=== PATIENT | female | born 1975 | race Caucasian/White ===

== ENCOUNTER 2017-07-17 16:44 | Emergency (ER) | payer MEDICARE, OTHER ==
[2017-07-17 16:47] VITALS: BP 167/91; PULSE 69; RESP 16; TEMP 98.4; O2SAT 100
[2017-07-17] MEDS ORDERED: [UNRECOGNIZED DRUG - OTHER] (17:28)
[2017-07-17] MEDS ORDERED: ACETAMINOPHEN/HYDROcodone 325 MG/5 MG TAB PO ONE (18:00)
[2017-07-17] MEDS ORDERED: ORPHENADRINE INJ 60 MG/2 ML AMP IM ONE (18:00)
[2017-07-17] MEDS ORDERED: KETOROLAC TROMETHAMINE 60 MG/2 ML (IM) VIAL IM ONE (18:00)
--- NOTE | 2017-07-17 18:08 | PD ---
HPI Chief Complaint: Musculoskeletal Complaint Time Seen by Provider: 17:25 Travel History International Travel<30 days: No Contact w/Intl Traveler<30days: No Traveled to known affect area: No History of Present Illness HPI 41-year-old female with PMH of degenerative discs, chronic back pain presents to the ED for evaluation of 04/17 shooting back pain, onset the morning when she woke up. She can identify no acute injury or recent overuse. She states that the pain radiates up her spine and down her legs. She endorses antalgic gait. She denies headache, fevers, numbness, tingling, weakness, limitations to range of motion of the lower extremities, saddle anesthesia or bowel/bladder incontinence. She denies dysuria, hematuria, urinary urgency. She states this is similar to her previous back pain problems. She states that she was previously seen by a neurologist but has not been evaluated since July. She is seeking treatment of her pain. PFSH Past Medical History ?: Not LMP: mirena Social History Alcohol Use: No Tobacco Use: No Substance Use: No Allergies-Medications (Allergen,Severity, Reaction): Coded Allergies: No Known Allergies (Unverified , 07/17/17) Reported Meds & Prescriptions Reported Meds & Active Scripts Active Reported [dexalin] 60 Mg BID Review of Systems Except as stated in HPI: all other systems reviewed are Neg Physical Exam Narrative GENERAL: Morbidly obese white female, lying on her side on the stretcher with her legs tucked underneath her no acute distress. SKIN: Focused skin assessment warm/dry. HEAD: Normocephalic. EYES: No scleral icterus. No injection or drainage. NECK: Supple, trachea midline. No JVD or lymphadenopathy. CARDIOVASCULAR: Regular rate and rhythm without murmurs, gallops, or rubs. RESPIRATORY: Breath sounds equal bilaterally. No accessory muscle use. GASTROINTESTINAL: Abdomen soft, non-tender, nondistended. MUSCULOSKELETAL: No cyanosis, or edema. 5/5 strength with dorsiflexion, plantarflexion knee flexion bilaterally. Patient is noted to walk with an antalgic gait. BACK: No obvious deformity. No CVA tenderness. Positive midline tenderness of the entire length of the spine and the paraspinal musculature. Data Data Last Documented VS Vital Signs Date Time Temp Pulse Resp B/P (MAP) Pulse Ox O2 Delivery O2 Flow Rate FiO2 1/9/18 16:47 98.4 69 16 167/91 (116) 100 Orders Orders Ketorolac Inj (Toradol Inj) (07/17/17 18:00) Orphenadrine Inj (Norflex Inj) (07/17/17 18:00) Acetamin-Hydrocod 325-5 Mg ([place] 5-325 (07/17/17 18:00) MDM Medical Decision Making Medical Screen Exam Complete: Yes Emergency Medical Condition: Yes Differential Diagnosis Acute on chronic back pain versus musculoskeletal pain versus sciatica versus other Narrative Course 41-year-old female with PMH of degenerative discs, chronic back pain presents to the ED for evaluation of 04/17 shooting back pain, onset the morning when she woke up, radiates up her spine and down her legs. She endorses antalgic gait. She denies numbness, tingling, weakness, limitations to range of motion of the lower extremities, saddle anesthesia or bowel/bladder incontinence, dysuria, hematuria, urinary urgency. She states this is similar to her previous back pain problems. Vitals reviewed. Physical exam reveals an obese white female in no acute distress. There is 5/5 strength of the bilateral lower extremities. She is noted to walk with an antalgic gait. There is tenderness to palpation over the entire midline is worse the paraspinal musculature of the back. No CVA tenderness noted. This is acute exacerbation of chronic low back pain. Patient was administered IM Toradol, IM Norflex and 5 mg Lortab by mouth. She is prescribed a short course of anti-inflammatories and muscle relaxants. She is instructed to begin the anti-inflammatories tomorrow, muscle relaxants and 6 hours. She is instructed to return to normal, gentle activity as tolerated. We discussed red flag symptoms and reasons to return to the ED. She was referred to the [place] [facility] to establish primary care. She indicated understanding of instructions and is agreeable to the care plan. The patient is stable and discharged home. Diagnosis Primary Impression: Acute exacerbation of chronic low back pain Referrals: [facility] Patient Instructions: Acute Low Back Pain (ED), Chronic Back Pain (ED), General Instructions Additional Instructions: Rest, hydrate. A mixture of rest and activity is best for back pain. Return to normal, gentle activity as tolerated. Take medication as prescribed. Begin ibuprofen tomorrow. Begin Flexeril at 6 hours as needed for spasm. Do not drive while taking muscle relaxants. Warm compresses or heating pad applied to area pain may also help to improve your symptoms. Do not sleep on the heating pad. Follow-up with the [facility] as discussed. Return to the ED for worsening symptoms or any urgent or emergent medical condition. Med/Other Pt SpecificInfo: Prescription(s) given Scripts Ibuprofen (Ibuprofen) 800 Mg Tab 800 MG PO Q8H, #15 TAB 0 Refills Prov: Rehana Cote MD 07/17/17 Cyclobenzaprine (Flexeril) 10 Mg Tab 10 MG PO TID for Muscle Spasm, #15 TAB 0 Refills Prov: Rehana Cote MD 07/17/17 Disposition: 01 DISCHARGE HOME Condition: Stable Ofelia Gonzales Jul 17, 2017 18:08
[2017-07-17] MEDS ORDERED: IBUP1TAB7 PO (18:09)
[2017-07-17] MEDS ORDERED: CYCL10TA PO (18:09)
== END 2017-07-17 18:56 | disposition home or self-care (01) ==
LOC: NEPK 16:44
DX: M54.5 Low back pain (principal); G89.29 Other chronic pain; E66.01 Morbid (severe) obesity due to excess calories
CPT/HCPCS: 96372; 99284; J1885; J2360

== ENCOUNTER 2018-04-21 08:22 | Observation (INO) ==
[2018-04-21] MEDS ORDERED: Sod Chloride 0.9% Inj 1,000 ML IV.SIG ONE (08:58)
[2018-04-21] MEDS ORDERED: Morphine Inj 4 MG/ML Vial IV.PUSH ONE (08:58)
--- NOTE | 2018-04-21 09:09 | ED ---
HPI General Chief Complaint: Abdominal Pain Stated Complaint: flank pain Time Seen by Provider: 04/21/18 08:39 Source: patient Mode of arrival: ambulatory Limitations: no limitations History of Present Illness HPI narrative: Patient is a 42-year-old female, past medical history significant for migraines, ray nods syndrome, fibromyalgia, irritable bowel syndrome, who presents with complaint of right upper quadrant/right flank pain that began yesterday and has been constant since approximately 9 PM last night. She also reports nausea but states that she is chronically nauseated and this is no different than normal. No vomiting. No constipation or diarrhea. No changes in urination. MD complaint: Reports abdominal pain Onset (ago): day(s) Pain Consistency: constant Location: Reports RUQ and R flank Severity: moderate Quality: Reports aching and fullness Radiation: Reports none Migration to: Reports no migration Relieving factors: nothing Exacerbating factors: nothing Associated symptoms: Reports nausea Related Data Home Medications Medication Instructions Recorded Confirmed dexlansoprazole [Dexilant] 60 mg PO DAILY 04/21/18 04/21/18 dihydroergotamine 1 mg SUBCUT Q1H PRN 04/21/18 04/21/18 hyoscyamine sulfate 0.375 mg PO DAILY 04/21/18 04/21/18 metoclopramide HCl [Reglan] 5 mg PO TID PRN 04/21/18 04/21/18 verapamil 120 mg PO BID PRN 04/21/18 04/21/18 Allergies Allergy/AdvReac Type Severity Reaction Status Date / Time No Known Allergies Allergy Verified 04/21/18 08:31 Review of Systems ROS: all other systems reviewed are negative [facility] Medical History Medical History delivery delivered (Acute) Cholecystectomy planned (Acute) Degenerative disc disease (Acute) Fibromyalgia (Acute) IBS (irritable bowel syndrome) (Acute) Migraine (Acute) Osteoarthritis (Acute) Raynaud disease (Acute) Spinal stenosis (Acute) Surgical History Surgical History Gastric bypass status for obesity (Acute) History of abdominoplasty (Acute) Social History Social History Substance History: No History of Abuse Second Hand Smoke Exposure: No Smoking Status: Former smoker Tobacco Type: Cigarettes How Often Do You Have a Drink Containing Alcohol: Never Recent Travel in [facility] within the Last 8 Weeks: No Recent Out of Country Travel within the Last 8 Weeks: No Immunization History Tetanus Immunization: <5 Years Exam Narrative Exam Narrative: GENERAL: Well-appearing female in no acute distress, appears older than stated age SKIN: Focused skin assessment warm/dry. No rashes. HEAD: Atraumatic. Normocephalic. EYES: Pupils equal and round. No scleral icterus. No injection or drainage. ENT: No nasal bleeding or discharge. Mucous membranes pink and moist. NECK: Trachea midline. No JVD. CARDIOVASCULAR: Regular rate and rhythm. No murmur appreciated. Intact and equal peripheral pulses RESPIRATORY: No accessory muscle use. Clear to auscultation. Breath sounds equal bilaterally. GASTROINTESTINAL: Abdomen soft, slight tenderness in the right sided abdomen and in the right CVA region, nondistended. Hepatic and splenic margins not palpable. MUSCULOSKELETAL: No obvious deformities. No clubbing. No cyanosis. No edema. NEUROLOGICAL: Awake and alert. No obvious cranial nerve deficits. Motor grossly within normal limits. Normal speech. PSYCHIATRIC: Appropriate mood and affect; insight and judgment normal. Course Initial Documented Vital Signs Temperature 97.4 F L 04/21/18 08:27 Pulse Rate 72 04/21/18 08:27 Respiratory Rate 22 04/21/18 08:27 Blood Pressure 149/71 H 04/21/18 08:27 Pulse Oximetry 97 04/21/18 08:27 Last Documented Vital Signs Temperature 98.0 F 04/22/18 04:00 Pulse Rate 55 L 04/22/18 04:00 Respiratory Rate 18 04/22/18 04:00 Blood Pressure 123/60 04/22/18 04:00 Pulse Oximetry 98 04/22/18 04:00 Medical Decision Making MDM Narrative Medical decision making narrative: Patient is a 42 yof who presents with complaint of R sided abdominal pain. Labs relatively unremarkable, but CT shows intussuception. I spoke with Dr Sánchez, surgeon joint terminal attack controller, whom asked that we give her antibiotics and keep her NPO as he will be here to see her shortly. She was then seen by Dr Sánchez whom agreed to admission. Medical Screen Exam Complete: Yes Emergency Medical Condition: Yes Differential Diagnosis Differential Diagnosis: Differential diagnosis includes but is not limited to pancreatitis, irritable bowel syndrome, renal colic. Medical Records Medical records reviewed: Yes I reviewed the patient's medical records. Lab Data Result diagrams: 04/22/18 03:20 04/21/18 09:31 Lab Results 04/21/18 04/21/18 04/21/18 Range/Units 09:31 09:31 10:45 WBC 7.0 (4.0-11.0) th/mm3 RBC 4.73 (4.00-5.30) mil/mm3 Hgb 12.8 (11.6-15.3) gm/dL Hct 39.1 (35.0-46.0) % MCV 82.8 (80.0-100.0) fL MCH 27.1 (27.0-34.0) pg MCHC 32.7 (32.0-36.0) % RDW 14.1 (11.6-17.2) % Plt Count 300 (150-450) th/mm3 MPV 8.7 (7.0-11.0) fL Neut % (Auto) 67.4 (16.0-70.0) % Lymph % (Auto) 24.6 (9.0-44.0) % [place] % (Auto) 4.9 (0.0-8.0) % Eos % (Auto) 2.0 (0.0-4.0) % Baso % (Auto) 1.1 (0.0-2.0) % Neut # (Auto) 4.8 (1.8-7.7) th/mm3 Lymph # (Auto) 1.7 (1.0-4.8) th/mm3 [place] # (Auto) 0.3 (0.0-0.9) th/mm3 Eos # (Auto) 0.1 (0.0-0.4) th/mm3 Baso # (Auto) 0.1 (0.0-0.2) th/mm3 WBC Differential . Differential Comment Auto diff final Sodium 140 (136-145) meq/L Potassium 4.5 (3.5-5.1) meq/L Chloride 108 H (98-107) meq/L Carbon Dioxide 25.8 (21.0-32.0) meq/L Anion Gap 6 (5-15) meq/L BUN 14 (7-18) mg/dL Creatinine 0.84 (0.50-1.00) mg/dL Estimated GFR 74 L (>89) mL/min Random Glucose 92 (74-106) mg/dL Calcium 8.9 (8.5-10.1) mg/dL Total Bilirubin 0.4 (0.2-1.0) mg/dL AST 31 (15-37) U/L ALT 21 (10-53) U/L Alkaline Phosphatase 66 (45-117) U/L Total Protein 7.4 (6.4-8.2) g/dL Albumin 3.4 (3.4-5.0) g/dL Lipase 87 (73-393) U/L Urine Color Yellow (Yellw/Straw) Urine Clarity Hazy H (Clear) Urine pH 5.0 (5.0-8.5) Ur Specific Stem 1.041 H (1.002-1.035) Urine Protein Negative (Neg-Trace) mg/dL Urine Glucose (UA) Negative (Negative) mg/dL Urine Ketones Negative (Negative) mg/dL Urine Occult Blood Negative (Negative) Urine Nitrate Negative (Negative) Urine Bilirubin Negative (Negative) Urine Urobilinogen Less than 2 (Less than 2) mg/dL Ur Leukocyte Esterase Negative (Negative) Urine RBC 1 (0-3) /hpf Urine WBC 1 (0-5) /hpf Ur Squamous Epith Cells 2 (0-5) /hpf Micro UA Comment Culture not ind Ur Microscopic Review Not Reportable Urine Culture Comments Culture not ind 04/22/18 Range/Units 03:20 WBC 5.3 (4.0-11.0) th/mm3 RBC 4.00 (4.00-5.30) mil/mm3 Hgb 10.9 L (11.6-15.3) gm/dL Hct 32.9 L (35.0-46.0) % MCV 82.3 (80.0-100.0) fL MCH 27.2 (27.0-34.0) pg MCHC 33.0 (32.0-36.0) % RDW 14.3 (11.6-17.2) % Plt Count 241 (150-450) th/mm3 MPV 9.2 (7.0-11.0) fL Neut % (Auto) 60.4 (16.0-70.0) % Lymph % (Auto) 30.0 (9.0-44.0) % [place] % (Auto) 5.9 (0.0-8.0) % Eos % (Auto) 2.3 (0.0-4.0) % Baso % (Auto) 1.4 (0.0-2.0) % Neut # (Auto) 3.2 (1.8-7.7) th/mm3 Lymph # (Auto) 1.6 (1.0-4.8) th/mm3 [place] # (Auto) 0.3 (0.0-0.9) th/mm3 Eos # (Auto) 0.1 (0.0-0.4) th/mm3 Baso # (Auto) 0.1 (0.0-0.2) th/mm3 WBC Differential . Differential Comment Auto diff final Sodium (136-145) meq/L Potassium (3.5-5.1) meq/L Chloride (98-107) meq/L Carbon Dioxide (21.0-32.0) meq/L Anion Gap (5-15) meq/L BUN (7-18) mg/dL Creatinine (0.50-1.00) mg/dL Estimated GFR (>89) mL/min Random Glucose (74-106) mg/dL Calcium (8.5-10.1) mg/dL Total Bilirubin (0.2-1.0) mg/dL AST (15-37) U/L ALT (10-53) U/L Alkaline Phosphatase (45-117) U/L Total Protein (6.4-8.2) g/dL Albumin (3.4-5.0) g/dL Lipase (73-393) U/L Urine Color (Yellw/Straw) Urine Clarity (Clear) Urine pH (5.0-8.5) Ur Specific Stem (1.002-1.035) Urine Protein (Neg-Trace) mg/dL Urine Glucose (UA) (Negative) mg/dL Urine Ketones (Negative) mg/dL Urine Occult Blood (Negative) Urine Nitrate (Negative) Urine Bilirubin (Negative) Urine Urobilinogen (Less than 2) mg/dL Ur Leukocyte Esterase (Negative) Urine RBC (0-3) /hpf Urine WBC (0-5) /hpf Ur Squamous Epith Cells (0-5) /hpf Micro UA Comment Ur Microscopic Review Urine Culture Comments Imaging Data Attestation: I personally reviewed and interpreted this imaging study as follows : Radiologist's impression: Abdomen/Pelvis CT 04/21/18 08:58 CONCLUSION: 1. The patient is status post gastric bypass with fluid filled dilation of the jejunum just distal to the more distal anastomotic site.. At this location there is a short segment jejunal jejunal intussusception. No evidence of bowel obstruction or adjacent abnormal wall thickening. 2. IUD identified within the midline endometrium and a dominant follicle identified within the left ovary. Discharge Plan Discharge Disposition Patient Disposition: 30 Still Patient Discharge Condition Condition: Stable Discharge Details Diagnosis: Intussusception Physicians Team ED Provider: Adrienne Villeda Primary Care Provider: UNKNOWN, Attending Provider: Fabian Sánchez Other Providers: Fabian Sánchez Discharge Interventions Interventions: ED Discharge Assessment Last Done: 04/21/18 15:35 Vital Signs Last Done: 04/21/18 15:00 Status ED Status: Left Department Discharge Information Discharge Date/Time: 04/21/18 15:49
[2018-04-21 09:47] LABS: Baso # (Auto) 0.1 th/mm3 (0.0-0.2); Baso % (Auto) 1.1 % (0.0-2.0); Eos # (Auto) 0.1 th/mm3 (0.0-0.4); Hematocrit 39.1 % (35.0-46.0); Hemoglobin 12.8 gm/dL (11.6-15.3); Lymph # (Auto) 1.7 th/mm3 (1.0-4.8); Lymph % (Auto) 24.6 % (9.0-44.0); Mean Corpuscular HGB Conc 32.7 % (32.0-36.0); Mean Corpuscular Hemoglobin 27.1 pg (27.0-34.0); Mean Corpuscular Volume 82.8 fL (80.0-100.0); Mean Platelet Volume 8.7 fL (7.0-11.0); Mono # (Auto) 0.3 th/mm3 (0.0-0.9); Mono % (Auto) 4.9 % (0.0-8.0); Neut # (Auto) 4.8 th/mm3 (1.8-7.7); Neut % (Auto) 67.4 % (16.0-70.0); Platelet Count 300 th/mm3 (150-450); Red Blood Count 4.73 mil/mm3 (4.00-5.30); Red Cell Distribution Width 14.1 % (11.6-17.2)
--- NOTE | 2018-04-21 10:10 | CT ---
EXAM DATE: 04/21/2018 9:10 AM EDT AGE/SEX: 42 years / Female INDICATIONS: Abdomen Pain CLINICAL DATA: This is the patient's initial encounter. Patient reports that signs and symptoms have been present for 1 day and indicates a pain score of 7/10. MEDICAL/SURGICAL HISTORY: Inflammatory bowel disease. Osteoarthritis. Spinal stenosis. Fibro myalgia, Raynaud disease section. Cholecystectomy. Gastric bypass. Abdominoplasty ORAL CONTRAST: No oral contrast ingested. RADIATION DOSE: 17.93 CTDI (mGy) ; Patient body habitus COMPARISON: No prior exams available for comparison. TECHNIQUE: Multiple contiguous axial images were obtained through the abdomen and pelvis following b olus infusion of 97 ml Omnipaque 350 (iohexol) nonionic water-soluble contrast as a single exam dos e. No oral contrast ingested. Using automated exposure control and adjustment of the mA and/or kV ac cording to patient size, radiation dose was kept as low as reasonably achievable to obtain optimal di agnostic quality images. DICOM format image data is available electronically for review and comparis on. FINDINGS: Lower Lungs: The visualized lower lungs are clear. Liver: The liver has a homogeneous density without space-occupying lesion. There is no dilation of th e biliary tree. Spleen: Homogeneous density without enlargement. Pancreas: Unremarkable without mass or calcification. Kidneys: Normal in size and shape. No evidence of mass or hydronephrosis. Adrenal Glands: Unremarkable. Aorta: The aorta and proximal iliac vessels are grossly unremarkable without aneurysmal dilation. Bowel/Mesentery: The patient is status post gastric bypass. Just distal to the distal anastomotic si te there is dilation of the jejunum measuring 4.3 cm in diameter, filled with fluid. There is a very short segment of intussusception present at this location. The more distal jejunum as well as the ile um is normal in caliber without abnormal wall thickening. There is moderate stool identified within t he colon without evidence of abnormal wall thickening or inflammatory change. Abdominal Wall: Intact. Retroperitoneum: No evidence of adenopathy in the retrocrural, para-aortic, or deep pelvic regions. Bladder: Contours are smooth. Reproductive Organs: There is an IUD identified within the midline uterus and a simple appearing fol licle identified within the left ovary. Inguinal: The inguinal region is unremarkable without evidence of adenopathy. Bony Structures: Unremarkable. CONCLUSION: 1. The patient is status post gastric bypass with fluid filled dilation of the jejunum just distal t o the more distal anastomotic site.. At this location there is a short segment jejunal jejunal intuss usception. No evidence of bowel obstruction or adjacent abnormal wall thickening. 2. IUD identified within the midline endometrium and a dominant follicle identified within the left ovary. Electronically signed by: Sloane Armenta MD 04/21/2018 10:09 AM EDT
[2018-04-21 10:21] LABS: Alanine Aminotransferase 21 U/L (10-53)
[2018-04-21 10:23] LABS: Alkaline Phosphatase 66 U/L (45-117); Total Protein 7.4 g/dL (6.4-8.2)
[2018-04-21 10:37] LABS: Albumin 3.4 g/dL (3.4-5.0); Anion Gap 6 meq/L (5-15); Aspartate Aminotransferase 31 U/L (15-37); Blood Urea Nitrogen 14 mg/dL (7-18); Calcium 8.9 mg/dL (8.5-10.1); Carbon Dioxide 25.8 meq/L (21.0-32.0); Chloride 108 meq/L (98-107); Glomerular Filtration Rate 74 mL/min (>89); Glucose,Random 92 mg/dL (74-106); Lipase 87 U/L (73-393); Potassium 4.5 meq/L (3.5-5.1); Sodium 140 meq/L (136-145)
[2018-04-21] MEDS ORDERED: Piperacil/Tazo 4.5 GM Premix 4.5 GM/100 ML BAG IV.SIG ONE (10:52)
[2018-04-21] MEDS ORDERED: Diatrizoate Meglum/Diatrizoate Sod Liq 120 ML Bottle (for RAD diag) PO ONE (11:00)
[2018-04-21 11:18] LABS: Bilirubin,Urine Negative (Negative); Clarity,Urine Hazy (Clear); Color,Urine Yellow (Yellw/Straw); Glucose,Urine (UA) Negative (Negative); Leukocyte Esterase,Urine Negative (Negative); Nitrite,Urine Negative (Negative); Specific Gravity,Urine 1.041 (1.002-1.035); Squamous Epithelial Cell,Urine 2 /hpf (0-5)
[2018-04-21] MEDS ORDERED: Acetaminophen 325 MG Tablet PO PRN (13:55)
[2018-04-21] MEDS: Pantoprazole Inj 40 MG Vial IV.PUSH SCH (14:11)
[2018-04-21] MEDS: Morphine Inj 4 MG/ML Vial IV.PUSH PRN ×3 (14:11→23:56)
[2018-04-21] MEDS: Sod Chloride 0.9% Inj 1,000 ML IV.SIG SCH ×2 (14:12→15:07)
[2018-04-21] MEDS: Enoxaparin Inj 30 MG/0.3 ML Syringe SQ SCH ×2 (15:26→20:36)
[2018-04-21] MEDS: Sod Chloride 0.9% Inj 1,000 ML IV.CONT SCH (15:27)
[2018-04-21] MEDS: Multivitamin Inj 10 ML, Thiamine Inj 100 MG, Folic Acid Inj 1 MG in Sodium Chlor 0.9% I... IV.SIG SCH (16:47)
--- NOTE | 2018-04-21 18:15 | MH ---
cc: Fabian Sánchez MD DATE OF ADMISSION: 04/21/2018 CHIEF COMPLAINT: Epigastric abdominal pain with history of gastric bypass surgery. HISTORY OF PRESENT ILLNESS: The patient is a 42-year-old female who presented to [facility] with new onset epigastric abdominal pain for 24 hours. The pain is epigastric, constant, without radiating. She has never had pain like this before. The patient did undergo evaluation with a CT scan. It does show abnormality of her JJ, possible small intussusception. The patient was found to have normal labs and otherwise to be stable without any acute findings on history, physical exam, or imaging. General surgery was asked to see and evaluate the patient due to the possible abnormality on CT scan. The patient states that she recently underwent gastric bypass in the year 1999 and was followed up by a remnant gastrectomy in 2000. She is not sure why that was performed. This was all performed [place]. The patient has since had some increased weight and states that she had upper endoscopy 3 or 4 years ago, but she was told her gastric pouch was very dilated and was told it needed to be "revised." Of note, the patient is also status post cholecystectomy. REVIEW OF SYSTEMS: A 12-point review of systems discussed with the patient and is negative other than the pertinent positives mentioned above. PAST MEDICAL HISTORY: Fibromyalgia, irritable bowel syndrome, recurrent migraines, osteoarthritis, Raynaud disease, spinal stenosis. PAST SURGICAL HISTORY: Open gastric bypass surgery, Dawn-en-Y type in 1999, remnant gastrectomy, open in 2000, as well as cholecystectomy, delivery. ALLERGIES: NO KNOWN DRUG ALLERGIES. HOME MEDICATIONS: Dexlansoprazole, dihydroergotamine, hyoscyamine sulfate, verapamil, metoclopramide. SOCIAL HISTORY: Denies alcohol, tobacco, or illicit drug use. FAMILY HISTORY: Reviewed, noncontributory. PHYSICAL EXAMINATION: VITAL SIGNS: Temperature 98.3 degrees, pulse 61, blood pressure 111/56, O2 saturation 100%. GENERAL: The patient is an obese, female. She does not appear acute or chronically ill. HEENT: Head is normocephalic, atraumatic. Pupils are round and reactive to light. Sclerae are anicteric. Oral cavity is clear. Airway is patent. NECK: Supple. No JVD. No lymphadenopathy. LUNGS: Breath sounds are present bilaterally. Nonlabored breathing pattern. HEART: Regular rate and rhythm. No murmurs. ABDOMEN: Obese. There is a long midline incision that is well healed without hernia. She has some subjective tenderness in the epigastric area with no rebound tenderness. No peritonitis. Normal bowel sounds. EXTREMITIES: Obese, some venous stasis changes, warm, and perfused. No clubbing or cyanosis. BACK: No CVA tenderness. NEUROLOGIC: The patient is alert and oriented x3. Nonfocal peripheral exam. Cranial nerves 2-12 are grossly intact. Mood, judgment, and insight are within normal limits. LABORATORY VALUES: White blood cell count 7.0, hemoglobin 12.8, albumin is 3.4. Urinalysis is unremarkable. CT scan is unremarkable with the exception of some dilation around the JJ anastomosis without obvious obstruction, possibility of a small area of short segment intussusception. ASSESSMENT AND PLAN: The patient is a 42-year-old female with history of open gastric bypass, some new onset epigastric pain, questionable abnormality at the JJ anastomosis. I reviewed the patient's CT scans carefully and there is some slight abnormality, but unclear if this is an acute problem or chronic change from having long-term gastric bypass anatomy. It is not necessarily the cause of the patient's symptoms per the CT finding as there is a long differential for potential cause of her symptoms in history of gastric bypass patient who is not being followed carefully by GI or gastric bypass and several years that she has not seen anybody out here. I do not think the patient needs any acute surgical intervention. I would recommend the patient be placed in observation for her symptoms and for further workup. We will rehydrate the patient and give her some bowel rest. We will order antacids and also consider small bowel follow through, upper GI routinely. We also asked [facility] to see the patient at their convenience to arrange followup as well as assist in any further workup or management of the patient's symptoms. I discussed all of this with the patient and she is in agreement with this plan. MD GHASSAN Morrow/nalini , 04:37 PM , 04:48 PM
[2018-04-22] MEDS: Sod Chloride 0.9% Inj 1,000 ML IV.CONT SCH ×4 (00:50→21:00)
[2018-04-22] MEDS: Pantoprazole Inj 40 MG Vial IV.PUSH SCH ×2 (03:08→15:51)
[2018-04-22 06:03] LABS: Baso # (Auto) 0.1 th/mm3 (0.0-0.2); Baso % (Auto) 1.4 % (0.0-2.0); Eos # (Auto) 0.1 th/mm3 (0.0-0.4); Eos % (Auto) 2.3 % (0.0-4.0); Hematocrit 32.9 % (35.0-46.0); Hemoglobin 10.9 gm/dL (11.6-15.3); Lymph # (Auto) 1.6 th/mm3 (1.0-4.8); Mean Corpuscular Hemoglobin 27.2 pg (27.0-34.0); Mean Corpuscular Volume 82.3 fL (80.0-100.0); Mean Platelet Volume 9.2 fL (7.0-11.0); Mono # (Auto) 0.3 th/mm3 (0.0-0.9); Mono % (Auto) 5.9 % (0.0-8.0); Neut # (Auto) 3.2 th/mm3 (1.8-7.7); Neut % (Auto) 60.4 % (16.0-70.0); Platelet Count 241 th/mm3 (150-450); Red Cell Distribution Width 14.3 % (11.6-17.2); White Blood Count 5.3 th/mm3 (4.0-11.0)
[2018-04-22] MEDS: Enoxaparin Inj 30 MG/0.3 ML Syringe SQ SCH ×2 (09:26→20:47)
[2018-04-22] MEDS: Morphine Inj 4 MG/ML Vial IV.PUSH PRN ×2 (12:00→20:54)
[2018-04-22] MEDS: Multivitamin Inj 10 ML, Thiamine Inj 100 MG, Folic Acid Inj 1 MG in Sodium Chlor 0.9% I... IV.SIG SCH (15:52)
--- NOTE | 2018-04-22 17:43 | FL ---
EXAM DATE: 04/22/2018 8:00 AM EDT AGE/SEX: 42 years / Female INDICATIONS: Obstruction. CLINICAL DATA: This is the patient's initial encounter. Patient reports that signs and symptoms have been present for 2 days and indicates a pain score of 9/10. MEDICAL/SURGICAL HISTORY: . Fibromyalgia. Raynaud disease, spinal stenosis, osteoarthritis, inf lammatory bowel disease, intussusception Cholecystectomy. gastric bypass 18 years ago, abdominoplast y, section COMPARISON: No prior exams available for comparison. FLUORO TIME: 1.4 IMAGE COUNT: 10 FINDINGS: A single contrast upper GI was performed with Gastrografin. The patient vomited throughout the examin ation. The patient is status post gastric bypass procedure. Contrast readily enters the gastric pouch and proximal jejunum without radiographic evidence of intussusception. No signs of obstruction. Esop hagus is normal in appearance. No contrast extravasation. CONCLUSION: Negative examination. Electronically signed by: Foreign Nunez MD 04/22/2018 5:42 PM EDT
--- NOTE | 2018-04-22 19:21 | P.PNGS ---
Subjective Patient reports: still having pain, diarrhea, nausea Physical Exam Vital signs: Vital Signs 04/21/18 21:25 04/22/18 00:00 04/22/18 04:00 Temperature 98.4 F 98.2 F 98.0 F Pulse Rate 55 L 58 L 55 L Respiratory Rate 18 19 18 Blood Pressure 145/74 H 120/60 123/60 Pulse Oximetry 99 98 04/22/18 07:21 04/22/18 12:00 04/22/18 16:00 Temperature 97.8 F 97.8 F 98.8 F Pulse Rate 59 L 56 L 60 Respiratory Rate 16 16 16 Blood Pressure 109/60 115/59 L 127/73 Pulse Oximetry 98 99 99 Intake & Output 04/22/18 04/22/18 04/23/18 06:59 18:59 06:59 Intake Total 1511.2 / 1511.2 Balance 1511.2 / 1511.2 Intake: IV 1511.2 / 1511.2 NS Inj 1,000 ML @ 125 mls/hr IV 1000 / 1000 .CONT .Q8H [facility] Rx#:[id number] MVI-12 Inj 10 ML Thiamine Inj 511.2 / 511.2 100 MG Folvite Inj 1 MG In NS Inj 500 ML @ 125 mls/hr IV.SIG Q24H [facility] Rx#:[id number] Other: # Voids 1 - Constitutional no acute distress - Routine Respiratory Exam Present: CTA bilaterally - Routine Cardiovascular Exam Present: RRR - Routine Abdominal Exam Present: soft, normoactive bowel sounds, tenderness. Absent: distended, rebound , guarding - Routine Neurological Exam Present: alert, oriented X3 - Routine Psychiatric Exam Present: normal affect Results - Labs 04/22/18 03:20 04/21/18 09:31 Laboratory Results - last 24 hr 04/22/18 03:20 WBC 5.3 RBC 4.00 Hgb 10.9 L Hct 32.9 L MCV 82.3 MCH 27.2 MCHC 33.0 RDW 14.3 Plt Count 241 MPV 9.2 Neut % (Auto) 60.4 Lymph % (Auto) 30.0 Crook % (Auto) 5.9 Eos % (Auto) 2.3 Baso % (Auto) 1.4 Neut # (Auto) 3.2 Lymph # (Auto) 1.6 Crook # (Auto) 0.3 Eos # (Auto) 0.1 Baso # (Auto) 0.1 WBC Differential . Differential Comment Auto diff final - Imaging Imaging: ITS Impressions Abdomen/Pelvis CT 04/21/18 08:58 CONCLUSION: 1. The patient is status post gastric bypass with fluid filled dilation of the jejunum just distal to the more distal anastomotic site.. At this location there is a short segment jejunal jejunal intussusception. No evidence of bowel obstruction or adjacent abnormal wall thickening. 2. IUD identified within the midline endometrium and a dominant follicle identified within the left ovary. Gastrografin Study 04/22/18 08:00 CONCLUSION: Negative examination. Assessment and Plan - Assessment (1) Gastroenteritis and colitis, viral Code(s): A08.4 - Viral intestinal infection, unspecified Status: Acute - Plan 42yo female with history of RNY gastric bypass, abdominal pain x48h Upper GI normal, no intussusception (likely postop change vs gastroenteritis) consult GI for assistance, possible EGD dw patient
[2018-04-23] MEDS: Pantoprazole Inj 40 MG Vial IV.PUSH SCH ×2 (01:14→16:02)
[2018-04-23] MEDS: Sod Chloride 0.9% Inj 1,000 ML IV.CONT SCH ×3 (05:05→22:27)
--- NOTE | 2018-04-23 09:32 | P.CONGI ---
History of Present Illness Consult date: 04/23/18 Consult reason: History of gastric bypass Evaluate for abdominal pain May need EGD Chief complaint: Intussuception History of Present Illness: This patient is a 42-year-old female who presented to [facility] emergency room on 04/21/2018. Patient presented with complaint of 2-3-day onset of right upper quadrant abdominal pain. Our practice has been consulted to evaluate patient's pain/possible need for EGD. Patient describes pain as sharp and stabbing and rates at 8 out of 10 at this time. She states she is never experienced this type of pain before, and that it is constant and does not radiate. There are no discernible alleviating or aggravating factors. Patient states pain is associated with nausea and vomiting. Patient states emesis "foam like". Denies any noted bleeding. Patient has history of gastric bypass that was done in 1999. States she was 550 pounds and has lost a total of 370 pounds before gaining back weight for present weight of 305 pounds. Last EGD was done 4-5 years ago per patient [place] in [place], patient states she was told that she had "low rising reflux". Patient denies any feelings of heartburn and is not currently prescribed a PPI or H2 james. States she takes Levsin, Dexilant daily. Patient denies any difficulty swallowing. She states her bowel movements are normally loose brown in color, 2-5 times daily. Denies any current change in bowel habits. Last colonoscopy per patient , was done 4-5 years ago up [facility] and patient reports it was a normal exam. States there is a family history of Crohn's, ulcerative colitis, celiac disease, paternal grandmother-colon cancer, maternal side of family-IBS. Patient denies the use of blood thinners/aspirin or NSAIDs. Denies tobacco or alcohol use, states he stopped smoking 22 years ago. Patient denies any noted rectal bleeding. Patient states she has had nothing by mouth since Sunday evening. Discussed EGD procedure with patient who verbalized understanding and agreement. <Samantha Pierce - Last Filed: 04/23/18 09:09> Review of Systems All other systems reviewed negative except as stated in HPI <Samantha Pierce - Last Filed: 04/23/18 09:09> PMFSH - History History Provided By: Patient - Medical History Medical History: Medical History (Last Reviewed 04/21/18 @ 09:08 by Adrienne Villeda MD) delivery delivered Cholecystectomy planned Degenerative disc disease Fibromyalgia IBS (irritable bowel syndrome) Migraine Osteoarthritis Raynaud disease Spinal stenosis - Surgical History Surgical History: Surgical History (Last Reviewed 04/21/18 @ 09:08 by Adrienne Villeda MD) Gastric bypass status for obesity History of abdominoplasty - Tobacco History Second Hand Smoke Exposure: No Tobacco Use In Past 30 Days: No Smoking Status: Former smoker Tobacco Type: Cigarettes - Alcohol History How Often Do You Have a Drink Containing Alcohol: Never - Substance Use History Substance History: No History of Abuse - Travel History Recent Travel in the [place] Within the Last 8 Weeks: No Recent Travel Out of the Country Within the Last 8 Weeks: No - Immunization History Tetanus Immunization: <5 Years <Samantha Pierce - Last Filed: 04/23/18 09:09> - Medical History Medical History: Medical History (Last Reviewed 04/21/18 @ 09:08 by Adrienne Villeda MD) delivery delivered Cholecystectomy planned Degenerative disc disease Fibromyalgia IBS (irritable bowel syndrome) Migraine Osteoarthritis Raynaud disease Spinal stenosis - Surgical History Surgical History: Surgical History (Last Reviewed 04/21/18 @ 09:08 by Adrienne Villeda MD) Gastric bypass status for obesity History of abdominoplasty <Marta Zamora - Last Filed: 04/23/18 18:47> Medications and Allergies Active Medications: Active Medications Acetaminophen (Tylenol) 650 mg PO Q6H PRN PRN Reason: TEMPERATURE > 102 F Enalaprilat (Vasotec Inj) 1.25 mg IV.PUSH Q8H PRN PRN Reason: Blood pressure 180/95 Enoxaparin Sodium (Lovenox Inj) 30 mg SQ Q12HR [facility] Last Admin: 04/22/18 20:47 Dose: 30 mg Sodium Chloride (Ns Inj) 1,000 mls @ 125 mls/hr IV.CONT .Q8H [facility] Last Admin: 04/23/18 05:05 Dose: 125 mls/hr Multivitamins 10 ml/ Thiamine HCl 100 mg/ Folic Acid 1 mg/Sodium Chloride 511.2 mls @ 125 mls/hr IV.SIG Q24H [facility] Stop: 04/23/18 19:06 Last Infusion: 04/22/18 21:03 Dose: Infused Morphine Sulfate (Morphine Inj) 2 mg IV.PUSH Q4H PRN PRN Reason: PAIN SCALE 1 TO 5 Last Admin: 04/22/18 20:54 Dose: 2 mg Ondansetron HCl (Zofran Inj) 4 mg IV.PUSH Q6H PRN PRN Reason: NAUSEA OR VOMITING Last Admin: 04/22/18 09:25 Dose: 4 mg Pantoprazole Sodium (Protonix Inj) 40 mg IV.PUSH Q12H [facility] Last Admin: 04/23/18 01:14 Dose: 40 mg Promethazine HCl (Phenergan Inj) 12.5 mg IM Q6H PRN PRN Reason: NAUSEA Sodium Chloride (Ns Flush) 2 ml IV.FLUSH BID [facility] Last Admin: 04/22/18 20:47 Dose: 2 ml Sodium Chloride (Ns Flush) 2 ml IV.FLUSH PRN PRN PRN Reason: FLUSH AFTER USING IV ACCESS <Samantha Pierce - Last Filed: 04/23/18 09:09> Active Medications: Active Medications Acetaminophen (Tylenol) 650 mg PO Q6H PRN PRN Reason: TEMPERATURE > 102 F Enalaprilat (Vasotec Inj) 1.25 mg IV.PUSH Q8H PRN PRN Reason: Blood pressure 180/95 Enoxaparin Sodium (Lovenox Inj) 30 mg SQ Q12HR [facility] Last Admin: 04/22/18 20:47 Dose: 30 mg Sodium Chloride (Ns Inj) 1,000 mls @ 125 mls/hr IV.CONT .Q8H [facility] Last Admin: 04/23/18 16:03 Dose: 125 mls/hr Multivitamins 10 ml/ Thiamine HCl 100 mg/ Folic Acid 1 mg/Sodium Chloride 511.2 mls @ 125 mls/hr IV.SIG Q24H [facility] Stop: 04/23/18 19:06 Last Admin: 04/23/18 16:37 Dose: 250 mls/hr Morphine Sulfate (Morphine Inj) 2 mg IV.PUSH Q4H PRN PRN Reason: PAIN SCALE 1 TO 5 Last Admin: 04/23/18 16:19 Dose: 2 mg Ondansetron HCl (Zofran Inj) 4 mg IV.PUSH Q6H PRN PRN Reason: NAUSEA OR VOMITING Last Admin: 04/22/18 09:25 Dose: 4 mg Pantoprazole Sodium (Protonix Inj) 40 mg IV.PUSH Q12H [facility] Last Admin: 04/23/18 16:02 Dose: 40 mg Promethazine HCl (Phenergan Inj) 12.5 mg IM Q6H PRN PRN Reason: NAUSEA Sodium Chloride (Ns Flush) 2 ml IV.FLUSH BID [facility] Last Admin: 04/23/18 12:35 Dose: 2 ml Sodium Chloride (Ns Flush) 2 ml IV.FLUSH PRN PRN PRN Reason: FLUSH AFTER USING IV ACCESS <Marta Zamora - Last Filed: 04/23/18 18:47> Allergies Allergy/AdvReac Type Severity Reaction Status Date / Time No Known Allergies Allergy Verified 04/21/18 08:31 Home Medications Medication Instructions Recorded Confirmed Type dexlansoprazole [Dexilant] 60 mg PO DAILY 04/21/18 04/21/18 History dihydroergotamine 1 mg SUBCUT Q1H PRN 04/21/18 04/21/18 History hyoscyamine sulfate 0.375 mg PO DAILY 04/21/18 04/21/18 History metoclopramide HCl [Reglan] 5 mg PO TID PRN 04/21/18 04/21/18 History verapamil 120 mg PO BID PRN 04/21/18 04/21/18 History Exam Vital signs: Vital Signs 04/22/18 12:00 04/22/18 16:00 04/22/18 20:00 Temperature 97.8 F 98.8 F 98.7 F Pulse Rate 56 L 60 60 Respiratory Rate 16 16 16 Blood Pressure 115/59 L 127/73 138/70 Pulse Oximetry 99 99 97 04/23/18 00:00 04/23/18 04:00 04/23/18 07:44 Temperature 98.4 F 98.3 F 98.8 F Pulse Rate 60 60 58 L Respiratory Rate 16 16 16 Blood Pressure 108/56 L 116/71 137/86 Pulse Oximetry 98 98 96 Intake & Output 04/22/18 04/23/18 04/23/18 18:59 06:59 18:59 Intake Total 0 / 0 1511.2 / 1511.2 Balance 0 / 0 1511.2 / 1511.2 Intake: IV 1511.2 / 1511.2 NS Inj 1,000 ML @ 125 mls/hr IV 1000 / 1000 .CONT .Q8H [facility] Rx#:[id number] MVI-12 Inj 10 ML Thiamine Inj 511.2 / 511.2 100 MG Folvite Inj 1 MG In NS Inj 500 ML @ 125 mls/hr IV.SIG Q24H [facility] Rx#:[id number] Oral 0 / 0 Oral Supplement 0 / 0 Other: Date of Last Bowel Movement 04/22/18 - Constitutional no acute distress - Routine HEENT Exam Head: Present: normocephalic - Routine Respiratory Exam Present: CTA bilaterally. Absent: accessory muscle use - Routine Cardiovascular Exam Present: RRR - Routine Abdominal Exam Present: soft, normoactive bowel sounds. Absent: tenderness, distended, guarding, firm Comments: Right upper quadrant pain - Routine Extremities Exam Present: full ROM, pulses intact. Absent: edema - Routine Skin Exam Present: dry, warm. Absent: pallor - Routine Neurological Exam Present: alert, oriented X3 <Pierce,Samantha - Last Filed: 04/23/18 09:09> Vital signs: Vital Signs 04/22/18 20:00 04/23/18 00:00 04/23/18 04:00 Temperature 98.7 F 98.4 F 98.3 F Pulse Rate 60 60 60 Respiratory Rate 16 16 16 Blood Pressure 138/70 108/56 L 116/71 Pulse Oximetry 97 98 98 04/23/18 07:44 04/23/18 12:40 04/23/18 16:00 Temperature 98.8 F 97.9 F 97.8 F Pulse Rate 58 L 56 L 57 L Respiratory Rate 16 18 16 Blood Pressure 137/86 130/63 149/72 H Pulse Oximetry 96 96 100 04/23/18 16:37 Temperature Pulse Rate Respiratory Rate 18 Blood Pressure Pulse Oximetry Intake & Output 04/22/18 04/23/18 04/23/18 18:59 06:59 18:59 Intake Total 0 / 0 1511.2 / 1511.2 1600 / 1600 Balance 0 / 0 1511.2 / 1511.2 1600 / 1600 Intake: IV 1511.2 / 1511.2 1000 / 1000 NS Inj 1,000 ML @ 125 mls/hr IV 1000 / 1000 1000 / 1000 .CONT .Q8H [facility] Rx#:[id number] MVI-12 Inj 10 ML Thiamine Inj 511.2 / 511.2 100 MG Folvite Inj 1 MG In NS Inj 500 ML @ 125 mls/hr IV.SIG Q24H [facility] Rx#:[id number] Oral 0 / 0 500 / 500 Oral Supplement 0 / 0 Anesthesia Amount 100 / 100 Other: Date of Last Bowel Movement 04/22/18 <Marta Zamora - Last Filed: 04/23/18 18:47> Results - Labs CBC & Chem 7: 04/22/18 03:20 04/21/18 09:31 - Imaging Impressions Gastrografin Study 04/22/18 08:00 CONCLUSION: Negative examination. <Samantha Pierce - Last Filed: 04/23/18 09:09> - Labs CBC & Chem 7: 04/22/18 03:20 04/21/18 09:31 <Marta Zamora - Last Filed: 04/23/18 18:47> Assessment and Plan (1) Abdominal pain Status: Acute Code(s): R10.9 - Unspecified abdominal pain (2) Intussusception Status: Acute Code(s): K56.1 - Intussusception - Plan This patient is a 42-year-old female who presented to [facility] emergency room on 04/21/2018. Patient presented with complaint of 2-3-day onset of right upper quadrant abdominal pain. Our practice has been consulted to evaluate patient's pain/possible need for EGD. Patient describes pain as sharp and stabbing and rates at 8 out of 10 at this time. She states she is never experienced this type of pain before, and that it is constant and does not radiate. There are no discernible alleviating or aggravating factors. Patient states pain is associated with nausea and vomiting. Patient states emesis "foam like". Denies any noted bleeding. Patient has history of gastric bypass that was done in 1999. States she was 550 pounds and has lost a total of 370 pounds before gaining back weight for present weight of 305 pounds. Last EGD was done 4-5 years ago per patient [place] in [place], patient states she was told that she had "low rising reflux". Patient denies any feelings of heartburn and is not currently prescribed a PPI or H2 james. States she takes Levsin, Dexilant daily. Patient denies any difficulty swallowing. She states her bowel movements are normally loose brown in color, 2-5 times daily. Denies any current change in bowel habits. Last colonoscopy per patient , was done 4-5 years ago [place] in [place] and patient reports it was a normal exam. States there is a family history of Crohn's, ulcerative colitis, celiac disease, paternal grandmother-colon cancer, maternal side of family-IBS. Patient denies the use of blood thinners/aspirin or NSAIDs. Denies tobacco or alcohol use, states he stopped smoking 22 years ago. Patient denies any noted rectal bleeding. Patient states she has had nothing by mouth since Sunday evening. Discussed EGD procedure with patient who verbalized understanding and agreement. Abdominal pain/History of gastric bypass Patient presents with 2-3-day onset of right upper quadrant abdominal pain that she describes as a sharp and stabbing. States accompanied nausea with vomiting. Denies any noted bleeding. Gastric bypass done in 1999.(04/21/2018) CT abdomen and pelvis done and revealed the following findings:.--> The patient is status post gastric bypass with fluid filled dilation of the jejunum just distal to the more distal anastomotic site.. At this location there is a short segment jejunal jejunal intussusception. No evidence of bowel obstruction or adjacent abnormal wall thickening. IUD identified within the midline endometrium and a dominant follicle identified within the left ovary. Hemoglobin 10.9 hematocrit 32.9 platelet count 251 total bilirubin 0.4 AST 31 ALT 21 alk phos 66 lipase 87. Plan for EGD today. Plan -N.p.o. -Obtain consent for EGD -EGD planned for today -Pain medication and antiemetics and pain as per attending -Continue PPI -Supportive care -Further recommendations to follow based on patient status and findings This patient has been seen by myself and Dr. Zamora and this note is written on her behalf - Attending Attestation Dr. Zamora <Samantha Pierce - Last Filed: 04/23/18 09:09> (1) Abdominal pain Status: Acute Code(s): R10.9 - Unspecified abdominal pain (2) Intussusception Status: Acute Code(s): K56.1 - Intussusception - Attending Attestation seen, examined agree with above <Marta Zamora - Last Filed: 04/23/18 18:47>
[2018-04-23] MEDS: Morphine Inj 4 MG/ML Vial IV.PUSH PRN ×3 (09:35→22:27)
--- NOTE | 2018-04-23 12:30 | GIPROC ---
[facility] [address] [facility] [place]. [facility], [address] EGD PROCEDURE REPORT EXAM DATE: 04/23/2018 PATIENT NAME: Martha Ca MR #: [id number] BIRTHDATE: 1975 ATTENDING: Marta Zamora MD ORDER #: [id number] MOLD BURNER: Adrienne Welsh Faria, Juan, and Yazmin Bean STATUS: inpatient INDICATIONS: The patient is a 42 yr old female here for an EGD due to nausea, vomiting, abdominal pain PROCEDURE PERFORMED: EGD w/ biopsy MEDICATIONS: None and Per Anesthesia. TOPICAL ANESTHETIC: none CONSENT: The patient understands the risks and benefits of the procedure and understands that these risks include, but are not limited to: sedation, allergic reaction, infection, perforation and/or bleeding. Alternative means of evaluation and treatment include, among others: physical exam, x-rays, and/or surgical intervention. The patient elects to proceed with this endoscopic procedure. medical equipment was checked for proper function. Hand hygiene and appropriate measures for infection prevention was taken. After the risks, benefits and alternatives of the procedure were thoroughly explained, Informed consent was verified, confirmed and timeout was successfully executed by the treatment team. The patient was anesthetized with topical anesthesia and the Pentax [id number] endoscope was introduced through the mouth and advanced to the proximal jejunum. Retroflexion was not performed The gastroscope was then slowly withdrawn and removed. S/p gastric bypass gastric [id number] jejunum normal-biopsy. ADVERSE EVENTS: There were no complications. IMPRESSIONS: 1. S/p gastric bypass gastric [id number] jejunum normal-biopsy 2. Retroflexion was not performed RECOMMENDATIONS: 1. Await biopsy results. Biopsy results will not be ready for 7-10 days. If you don't hear from us in two weeks, call our office for biopsy results. 2. Anti-reflux regimen 3. Continue PPI 4. Avoid NSAIDS 5. Full liquid diet consider sbft if ok with surgery PATIENT CONDITION: stable DISPOSITION: Inpatient REPEAT EXAM: Return 3 years EGD Marta Zamora MD eSigned: Marta Zamora MD 04/23/2018 12:30 PM cc: PATIENT NAME: Martha Ca MR#: [id number]
[2018-04-23] MEDS: Multivitamin Inj 10 ML, Thiamine Inj 100 MG, Folic Acid Inj 1 MG in Sodium Chlor 0.9% I... IV.SIG SCH (16:37)
[2018-04-24] MEDS: Pantoprazole Inj 40 MG Vial IV.PUSH SCH ×2 (01:32→13:21)
[2018-04-24] MEDS: Sod Chloride 0.9% Inj 1,000 ML IV.CONT SCH ×3 (06:51→22:24)
[2018-04-24] MEDS: Morphine Inj 4 MG/ML Vial IV.PUSH PRN ×3 (08:33→17:41)
[2018-04-24] MEDS: Enoxaparin Inj 30 MG/0.3 ML Syringe SQ SCH ×2 (08:33→22:23)
--- NOTE | 2018-04-24 11:34 | P.PNGI ---
Subjective Interval history: Patient sitting up in bed watching television. Reports continued abdominal discomfort. Denies any nausea or vomiting <Pierce,Samantha - Last Filed: 04/24/18 11:26> Physical Exam Vital signs: Vital Signs 04/23/18 12:40 04/23/18 16:00 04/23/18 16:37 Temperature 97.9 F 97.8 F Pulse Rate 56 L 57 L Respiratory Rate 18 16 18 Blood Pressure 130/63 149/72 H Pulse Oximetry 96 100 04/23/18 20:00 04/23/18 23:46 04/24/18 04:00 Temperature 98 F 98.1 F Pulse Rate 53 L 58 L 53 L Respiratory Rate 16 16 16 Blood Pressure 132/70 115/61 122/66 Pulse Oximetry 99 98 98 04/24/18 07:36 Temperature 97.5 F L Pulse Rate 58 L Respiratory Rate 20 Blood Pressure 147/73 H Pulse Oximetry 97 Intake & Output 04/23/18 04/24/18 04/24/18 18:59 06:59 18:59 Intake Total 1600 / 1600 2211.2 / 2211.2 1000 / 1000 Balance 1600 / 1600 2211.2 / 2211.2 1000 / 1000 Intake: IV 1000 / 1000 2211.2 / 2211.2 1000 / 1000 NS Inj 1,000 ML @ 125 mls/hr IV 1000 / 1000 1700 / 1700 1000 / 1000 .CONT .Q8H [facility] Rx#:[id number] MVI-12 Inj 10 ML Thiamine Inj 511.2 / 511.2 100 MG Folvite Inj 1 MG In NS Inj 500 ML @ 125 mls/hr IV.SIG Q24H [facility] Rx#:[id number] Oral 500 / 500 Anesthesia Amount 100 / 100 Other: Date of Last Bowel Movement 04/22/18 - Constitutional no acute distress - Routine HEENT Exam Head: Present: normocephalic - Routine Respiratory Exam Present: CTA bilaterally. Absent: accessory muscle use - Routine Cardiovascular Exam Present: RRR - Routine Abdominal Exam Present: soft, normoactive bowel sounds. Absent: guarding, firm - Routine Extremities Exam Present: full ROM - Routine Skin Exam Present: dry, warm - Routine Neurological Exam Present: alert, oriented X3 - Routine Psychiatric Exam Present: normal affect, cooperative <Pierce,Samantha - Last Filed: 04/24/18 11:26> Vital signs: Vital Signs 04/23/18 23:46 04/24/18 04:00 04/24/18 07:36 Temperature 98.1 F 97.5 F L Pulse Rate 58 L 53 L 58 L Respiratory Rate 16 16 20 Blood Pressure 115/61 122/66 147/73 H Pulse Oximetry 98 98 97 04/24/18 12:30 04/24/18 15:53 Temperature 98.2 F 97.8 F Pulse Rate 62 62 Respiratory Rate 20 20 Blood Pressure 165/83 H 146/70 H Pulse Oximetry 98 100 Intake & Output 04/24/18 04/24/18 04/25/18 06:59 18:59 06:59 Intake Total 2211.2 / 2211.2 1500 / 1500 Balance 2211.2 / 2211.2 1500 / 1500 Intake: IV 2211.2 / 2211.2 1000 / 1000 NS Inj 1,000 ML @ 125 mls/hr IV 1700 / 1700 1000 / 1000 .CONT .Q8H [facility] Rx#:[id number] MVI-12 Inj 10 ML Thiamine Inj 511.2 / 511.2 100 MG Folvite Inj 1 MG In NS Inj 500 ML @ 125 mls/hr IV.SIG Q24H [facility] Rx#:[id number] Oral 500 / 500 Other: Date of Last Bowel Movement 04/22/18 <Marta Zamora - Last Filed: 04/24/18 20:50> Results - Labs CBC & Chem 7: 04/22/18 03:20 04/21/18 09:31 <Samantha Pierce - Last Filed: 04/24/18 11:26> - Labs CBC & Chem 7: 04/22/18 03:20 04/21/18 09:31 <Marta Zamora - Last Filed: 04/24/18 20:50> Assessment and Plan (1) Abdominal pain Status: Acute Code(s): R10.9 - Unspecified abdominal pain (2) Intussusception Status: Acute Code(s): K56.1 - Intussusception - Plan This patient is a 42-year-old female who presented to [facility] emergency room on 04/21/2018. Patient presented with complaint of 2-3-day onset of right upper quadrant abdominal pain. Our practice has been consulted to evaluate patient's pain/possible need for EGD. Patient describes pain as sharp and stabbing and rates at 8 out of 10 at this time. She states she is never experienced this type of pain before, and that it is constant and does not radiate. There are no discernible alleviating or aggravating factors. Patient states pain is associated with nausea and vomiting. Patient states emesis "foam like". Denies any noted bleeding. Patient has history of gastric bypass that was done in 1999. States she was 550 pounds and has lost a total of 370 pounds before gaining back weight for present weight of 305 pounds. Last EGD was done 4-5 years ago per patient up [facility], patient states she was told that she had "low rising reflux". Patient denies any feelings of heartburn and is not currently prescribed a PPI or H2 james. States she takes Levsin, Dexilant daily. Patient denies any difficulty swallowing. She states her bowel movements are normally loose brown in color, 2-5 times daily. Denies any current change in bowel habits. Last colonoscopy per patient , was done 4-5 years ago up [facility] and patient reports it was a normal exam. States there is a family history of Crohn's, ulcerative colitis, celiac disease, paternal grandmother-colon cancer, maternal side of family-IBS. Patient denies the use of blood thinners/aspirin or NSAIDs. Denies tobacco or alcohol use, states he stopped smoking 22 years ago. Patient denies any noted rectal bleeding. Patient states she has had nothing by mouth since Sunday evening. Discussed EGD procedure with patient who verbalized understanding and agreement. Abdominal pain/History of gastric bypass Patient presents with 2-3-day onset of right upper quadrant abdominal pain that she describes as a sharp and stabbing. States accompanied nausea with vomiting. Denies any noted bleeding. Gastric bypass done in 1999.(04/21/2018) CT abdomen and pelvis done and revealed the following findings:.--> The patient is status post gastric bypass with fluid filled dilation of the jejunum just distal to the more distal anastomotic site.. At this location there is a short segment jejunal jejunal intussusception. No evidence of bowel obstruction or adjacent abnormal wall thickening. IUD identified within the midline endometrium and a dominant follicle identified within the left ovary. Hemoglobin 10.9 hematocrit 32.9 platelet count 251 total bilirubin 0.4 AST 31 ALT 21 alk phos 66 lipase 87. Plan for EGD today. Abdominal pain/history of gastric bypass 04/24/2018 Patient sitting up in bed watching television. Reports mild continued abdominal discomfort, being medicated with morphine sulfate 2 mg IV as needed. Denies any nausea or vomiting. Patient post EGD 04/23/2018 findings as follows- -. S/p gastric bypass gastric azcv-uoberzihj-ujvcjo jejunum normal-biopsy. Retroflexion was not performed. Discussed antireflux regimen with patient, instructed to follow-up post discharge for biopsy results. Patient advised to avoid NSAIDs. Instructed for recommended repeat EGD in 3 years. Plan -Full liquid diet as tolerated -Consider small bowel follow-through if okay with surgery -Antireflux regimen -Pain medication and antiemetics and pain as per attending -Continue PPI -Avoid NSAIDs -Supportive care -Further recommendations to follow based on patient status and findings This patient has been seen by myself and Dr. Zamora and this note is written on her behalf - Attending Attestation Dr. Zamora <Samantha Pierce - Last Filed: 04/24/18 11:26> (1) Abdominal pain Status: Acute Code(s): R10.9 - Unspecified abdominal pain (2) Intussusception Status: Acute Code(s): K56.1 - Intussusception - Attending Attestation ugi series noted if not better consider cta of abdomen in am <Marta Zamora - Last Filed: 04/24/18 20:50>
[2018-04-25] MEDS: Morphine Inj 4 MG/ML Vial IV.PUSH PRN ×2 (02:19→20:48)
[2018-04-25] MEDS: Pantoprazole Inj 40 MG Vial IV.PUSH SCH ×2 (02:20→18:52)
[2018-04-25] MEDS: Sod Chloride 0.9% Inj 1,000 ML IV.CONT SCH ×3 (07:44→23:12)
[2018-04-25] MEDS ORDERED: Bupivacaine/Epinephrine Inj 0.25% 50 ML Vial ONE (09:25)
[2018-04-25] MEDS ORDERED: Metoprolol Tartrate 25 MG Tablet PO ONE (10:10)
[2018-04-25] MEDS ORDERED: Chlorhexidine Gluconate 2% 1 Pack (2 Cloths) TOPICAL ONE (10:10)
[2018-04-25] MEDS ORDERED: Sodium Chlor 0.9% Inj 500 ML IV.SIG SCH (11:00)
[2018-04-25] MEDS ORDERED: ceFAZolin 2 GM Premix Inj 2 GM/50 ML PIGGYBACK IV.SIG ONE (11:24)
[2018-04-25] MEDS ORDERED: Neostigmine Inj 5 MG/5 ML Syringe IV.PUSH ONE (11:29)
[2018-04-25] MEDS ORDERED: Glycopyrrolate Inj 1 MG/5 ML Syringe IV.PUSH ONE (11:29)
[2018-04-25] MEDS ORDERED: Ketorolac Inj 30 MG/ML (IVP) Vial IV.PUSH ONE (11:29)
[2018-04-25] MEDS ORDERED: Lidocaine PF 1% Inj 5 ML Syringe OTHER ONE (11:29)
--- NOTE | 2018-04-25 11:46 | P.OP ---
- Preoperative Diagnosis (1) Abdominal pain - Postoperative Diagnosis (1) Abdominal pain Procedure: dx lap, MARLA Anesthesia: GETA Surgeon: Carlos A Fletcher MD Estimated blood loss (mL): 5 Pathology: none sent Operation and Findings: adhesions
--- NOTE | 2018-04-25 12:02 | P.PNGS ---
Subjective Patient reports: still having pain (full consult dicated, persistent right sided pain. nausea) Physical Exam Vital signs: Vital Signs 04/24/18 12:30 04/24/18 15:53 04/24/18 20:00 Temperature 98.2 F 97.8 F 98.5 F Pulse Rate 62 62 57 L Respiratory Rate 20 20 17 Blood Pressure 165/83 H 146/70 H 161/74 H Pulse Oximetry 98 100 100 04/25/18 00:00 04/25/18 04:00 04/25/18 08:00 Temperature 97.9 F 97.9 F 98.2 F Pulse Rate 51 L 56 L 61 Respiratory Rate 18 18 18 Blood Pressure 181/86 H 139/61 135/65 Pulse Oximetry 100 96 97 Intake & Output 04/24/18 04/25/18 04/25/18 18:59 06:59 18:59 Intake Total 1500 / 1500 1000 / 1000 Balance 1500 / 1500 1000 / 1000 Weight 138.346 kg Intake: IV 1000 / 1000 1000 / 1000 NS Inj 1,000 ML @ 125 mls/hr IV 1000 / 1000 1000 / 1000 .CONT .Q8H [facility] Rx#:[id number] Oral 500 / 500 0 / 0 Other: # Voids 2 Date of Last Bowel Movement 04/22/18 - Routine HEENT Exam Head: Present: normocephalic, atraumatic - Routine Respiratory Exam Present: CTA bilaterally - Routine Cardiovascular Exam Present: RRR - Routine Abdominal Exam Present: soft, tenderness (right sided) - Routine Extremities Exam Present: edema Results - Labs 04/22/18 03:20 04/21/18 09:31 - Imaging Imaging: ITS Impressions Abdomen/Pelvis CT 04/21/18 08:58 CONCLUSION: 1. The patient is status post gastric bypass with fluid filled dilation of the jejunum just distal to the more distal anastomotic site.. At this location there is a short segment jejunal jejunal intussusception. No evidence of bowel obstruction or adjacent abnormal wall thickening. 2. IUD identified within the midline endometrium and a dominant follicle identified within the left ovary. Gastrografin Study 04/22/18 08:00 CONCLUSION: Negative examination. Assessment and Plan - Assessment (1) Gastroenteritis and colitis, viral Code(s): A08.4 - Viral intestinal infection, unspecified Status: Acute - Plan hx of gastric bypass, egd shows gastritis, questionable intussusception plan for Dx lap npo after mn discussed with patient seen full consult dictated
[2018-04-25] MEDS ORDERED: fentaNYL Citrate Inj 100 MCG/2 ML Ampul ONE (13:47)
[2018-04-25] MEDS ORDERED: *Meperidine Inj 25 MG/ML Vial PERIprocedural Use ONLY ONE (13:59)
[2018-04-25] MEDS ORDERED: *morphine SULFATE 10 MG/ML PERIprocedure ONLY ONE (14:18)
--- NOTE | 2018-04-25 16:31 | MP ---
cc: Carlos A Fletcher MD DATE OF OPERATION: 04/25/2018 PREOPERATIVE DIAGNOSES: 1. Abdominal pain. 2. History of gastric bypass. POSTOPERATIVE DIAGNOSES: 1. Abdominal pain. 2. History of gastric bypass. 3. Adhesions. PROCEDURES PERFORMED: 1. Diagnostic laparoscopy. 2. Laparoscopic lysis of adhesions. SURGEON: Carlos A Fletcher MD LICENSED TAX CONSULTANT: Dr. Chilo Holder. Dr. Holder was needed due to complexity of the case. Dr. Espinosa assisted in retraction and camera control. ANESTHESIA: GETA. INTRAVENOUS FLUIDS: See anesthesia sheet. ESTIMATED BLOOD LOSS: 5 mL. DRAINS: None. COMPLICATIONS: None. WOUND CLASSIFICATION: Clean. FINDINGS: Several intra-abdominal adhesions. No evidence of intussusception. Nondilated jejunostomy. No evidence of obstruction and minimal adhesions to small bowel. Difficulty with full visualization of the gastrojejunal wall, due to a significant amount of scarring and adhesion in the epigastric area. Absence of gallbladder. Liver with fatty change, but no evidence of cysts or scarring within the liver. INDICATIONS FOR PROCEDURE: A 42-year-old female, who presents with a history of gastric bypass and abdominoplasty. Patient presents with acute onset of abdominal pain on the right side. The patient had further workup including a CT scan, and a small bowel series scan, questionable intussusception. DETAILS OF PROCEDURE: The patient was taken to the operative suite, placed in supine position. She was prepped and draped in usual sterile fashion, after induction of general endotracheal anesthesia. Brief timeout done, confirming correct patient, procedure, surgical site. We were all in agreement with this. Attention directed to the left upper quadrant, where a small stab incision was made after injection of local anesthetic. A 5 mm Visiport was placed in the abdomen safely. On cursory inspection, no evidence of injury. There were noted to be several adhesions, especially to the midline scar. Several other ports placed, including one supraumbilical 12 mm port, followed by left lower quadrant 5 mm port, and a right lower quadrant 5 mm port. Adhesiolysis was done intraoperatively with harmonic scalpel to take down adhesions with omentum and anterior abdominal wall. The jejunojejunostomy was also explored, noting several intra-abdominal adhesions. There was no overt obstruction. Examination of the jejunojejunostomy did not demarcate any noting of intussusception. Bowel was otherwise pink, viable, and healthy. Examination of the right upper quadrant and right side, there was really no significant adhesion to this side. There was a little bit of fatty liver change. Gallbladder was absent with omental adhesions in the gallbladder fossa. The bowel was run from the terminal ileum, all the way up to the jejunojejunostomy, and delineation of the biliopancreatic and Dawn limbs were identified. The gastric bypass was noted to be retrocolic and had difficulty in further exploring the gastrojejunostomy, due to significant adhesions and scarring from the ligament of Treitz from the ligamentum teres to the epigastric and superior area under the liver. Therefore, gastrojejunostomy was not fully visualized. Once lysis of adhesions was done and hemostasis was obtained, pneumoperitoneum was removed. Ports were removed. The superior umbilical port was closed with 0 Vicryl, 5 mm ports were closed with 4-0 Monocryl subcuticular sutures. Local anesthetic injected. The patient tolerated procedure well. No complications. All lap and needle counts were correct at the end of procedure. The patient was extubated and taken to the PACU. MD MICAH Cadena/tamara , 03:37 PM , 03:47 PM
--- NOTE | 2018-04-25 17:10 | P.PNGI ---
Subjective Interval history: Patient post diagnostic laparotomy with adhesion removal. Ambulating in room, states she has not yet passed gas. Denies severe abdominal pain, nausea or vomiting <Samantha Pierce - Last Filed: 04/25/18 17:05> Physical Exam Vital signs: Vital Signs 04/24/18 20:00 04/25/18 00:00 04/25/18 04:00 Temperature 98.5 F 97.9 F 97.9 F Pulse Rate 57 L 51 L 56 L Respiratory Rate 17 18 18 Blood Pressure 161/74 H 181/86 H 139/61 Pulse Oximetry 100 100 96 04/25/18 08:00 04/25/18 13:40 04/25/18 13:45 Temperature 98.2 F 97.9 F Pulse Rate 61 63 59 L Respiratory Rate 18 16 15 Blood Pressure 135/65 139/63 145/87 H Pulse Oximetry 97 100 96 04/25/18 14:00 04/25/18 14:15 04/25/18 14:30 Temperature Pulse Rate 50 L 53 L 48 L Respiratory Rate 16 16 15 Blood Pressure 148/78 H 139/72 136/75 Pulse Oximetry 97 98 98 04/25/18 14:45 04/25/18 15:00 04/25/18 15:45 Temperature 97.7 F Pulse Rate 45 L 48 L 52 L Respiratory Rate 15 15 16 Blood Pressure 133/78 135/81 135/81 Pulse Oximetry 99 98 96 Intake & Output 04/24/18 04/25/18 04/25/18 18:59 06:59 18:59 Intake Total 1500 / 1500 1000 / 1000 1150 / 1150 Output Total 155 / 155 Balance 1500 / 1500 1000 / 1000 995 / 995 Weight 138.346 kg Intake: IV 1000 / 1000 1000 / 1000 1150 / 1150 NS Inj 1,000 ML @ 125 mls/hr IV 1000 / 1000 1000 / 1000 .CONT .Q8H [facility] Rx#:[id number] LR 1000 mL Inj 1,000 ML @ 30 1000 / 1000 mls/hr IV.SIG .Q24H [facility] Rx#: [id number] Ancef 2 GM Premix Inj 2 gm In 50 / 50 50 ml @ 0 mls/hr IV.SIG .[facility] Rx#:[id number] Flagyl 500 MG Inj 100 ML @ 0 100 / 100 mls/hr IV.SIG .[facility] Rx#: [id number] Oral 500 / 500 0 / 0 Output: Urine 150 / 150 Estimated Blood Loss 5 / 5 Other: # Voids 2 Date of Last Bowel Movement 04/22/18 - Constitutional no acute distress - Routine HEENT Exam Head: Present: normocephalic - Routine Respiratory Exam Present: CTA bilaterally. Absent: accessory muscle use - Routine Abdominal Exam Present: soft, normoactive bowel sounds. Absent: firm Comments: Post exploratory lap with adhesion removal - Routine Extremities Exam Present: full ROM - Routine Skin Exam Present: dry, warm - Routine Psychiatric Exam Present: normal affect, cooperative <Pierce,Samantha - Last Filed: 04/25/18 17:05> Vital signs: Vital Signs 04/24/18 20:00 04/25/18 00:00 04/25/18 04:00 Temperature 98.5 F 97.9 F 97.9 F Pulse Rate 57 L 51 L 56 L Respiratory Rate 17 18 18 Blood Pressure 161/74 H 181/86 H 139/61 Pulse Oximetry 100 100 96 04/25/18 08:00 04/25/18 13:40 04/25/18 13:45 Temperature 98.2 F 97.9 F Pulse Rate 61 63 59 L Respiratory Rate 18 16 15 Blood Pressure 135/65 139/63 145/87 H Pulse Oximetry 97 100 96 04/25/18 14:00 04/25/18 14:15 04/25/18 14:30 Temperature Pulse Rate 50 L 53 L 48 L Respiratory Rate 16 16 15 Blood Pressure 148/78 H 139/72 136/75 Pulse Oximetry 97 98 98 04/25/18 14:45 04/25/18 15:00 04/25/18 15:45 Temperature 97.7 F Pulse Rate 45 L 48 L 52 L Respiratory Rate 15 15 16 Blood Pressure 133/78 135/81 135/81 Pulse Oximetry 99 98 96 04/25/18 16:00 Temperature 97.8 F Pulse Rate 49 L Respiratory Rate 16 Blood Pressure 174/83 H Pulse Oximetry 97 Intake & Output 04/25/18 04/25/18 04/26/18 06:59 18:59 06:59 Intake Total 1000 / 1000 1150 / 1150 Output Total 155 / 155 Balance 1000 / 1000 995 / 995 Weight 138.346 kg Intake: IV 1000 / 1000 1150 / 1150 NS Inj 1,000 ML @ 125 mls/hr IV 1000 / 1000 .CONT .Q8H [facility] Rx#:[id number] LR 1000 mL Inj 1,000 ML @ 30 1000 / 1000 mls/hr IV.SIG .Q24H [facility] Rx#: [id number] Ancef 2 GM Premix Inj 2 gm In 50 / 50 50 ml @ 0 mls/hr IV.SIG .[facility] Rx#:[id number] Flagyl 500 MG Inj 100 ML @ 0 100 / 100 mls/hr IV.SIG .[facility] Rx#: [id number] Oral 0 / 0 Output: Urine 150 / 150 Estimated Blood Loss 5 / 5 Other: # Voids 2 Date of Last Bowel Movement 04/22/18 <Marta Zamora - Last Filed: 04/25/18 19:29> Results - Labs CBC & Chem 7: 04/22/18 03:20 04/21/18 09:31 <Samantha Pierce - Last Filed: 04/25/18 17:05> - Labs CBC & Chem 7: 04/22/18 03:20 04/21/18 09:31 <Marta Zamora - Last Filed: 04/25/18 19:29> Assessment and Plan (1) Abdominal pain Status: Acute Code(s): R10.9 - Unspecified abdominal pain (2) Intussusception Status: Acute Code(s): K56.1 - Intussusception - Plan This patient is a 42-year-old female who presented to [facility] emergency room on 04/21/2018. Patient presented with complaint of 2-3-day onset of right upper quadrant abdominal pain. Our practice has been consulted to evaluate patient's pain/possible need for EGD. Patient describes pain as sharp and stabbing and rates at 8 out of 10 at this time. She states she is never experienced this type of pain before, and that it is constant and does not radiate. There are no discernible alleviating or aggravating factors. Patient states pain is associated with nausea and vomiting. Patient states emesis "foam like". Denies any noted bleeding. Patient has history of gastric bypass that was done in 1999. States she was 550 pounds and has lost a total of 370 pounds before gaining back weight for present weight of 305 pounds. Last EGD was done 4-5 years ago per patient up [facility], patient states she was told that she had "low rising reflux". Patient denies any feelings of heartburn and is not currently prescribed a PPI or H2 james. States she takes Levsin, Dexilant daily. Patient denies any difficulty swallowing. She states her bowel movements are normally loose brown in color, 2-5 times daily. Denies any current change in bowel habits. Last colonoscopy per patient , was done 4-5 years ago up [facility] and patient reports it was a normal exam. States there is a family history of Crohn's, ulcerative colitis, celiac disease, paternal grandmother-colon cancer, maternal side of family-IBS. Patient denies the use of blood thinners/aspirin or NSAIDs. Denies tobacco or alcohol use, states he stopped smoking 22 years ago. Patient denies any noted rectal bleeding. Patient states she has had nothing by mouth since Sunday evening. Discussed EGD procedure with patient who verbalized understanding and agreement. Abdominal pain/History of gastric bypass Patient presents with 2-3-day onset of right upper quadrant abdominal pain that she describes as a sharp and stabbing. States accompanied nausea with vomiting. Denies any noted bleeding. Gastric bypass done in 1999.(04/21/2018) CT abdomen and pelvis done and revealed the following findings:.--> The patient is status post gastric bypass with fluid filled dilation of the jejunum just distal to the more distal anastomotic site.. At this location there is a short segment jejunal jejunal intussusception. No evidence of bowel obstruction or adjacent abnormal wall thickening. IUD identified within the midline endometrium and a dominant follicle identified within the left ovary. Hemoglobin 10.9 hematocrit 32.9 platelet count 251 total bilirubin 0.4 AST 31 ALT 21 alk phos 66 lipase 87. Plan for EGD today. Abdominal pain/history of gastric bypass 04/24/2018 Patient sitting up in bed watching television. Reports mild continued abdominal discomfort, being medicated with morphine sulfate 2 mg IV as needed. Denies any nausea or vomiting. Patient post EGD 04/23/2018 findings as follows- -. S/p gastric bypass gastric lfic-jurwhvpmk-jfhoad jejunum normal-biopsy. Retroflexion was not performed. Discussed antireflux regimen with patient, instructed to follow-up post discharge for biopsy results. Patient advised to avoid NSAIDs. Instructed for recommended repeat EGD in 3 years. 04/25/2018 Patient ambulating in room to restroom. Reporting mild abdominal discomfort, status post diagnostic laparotomy with adhesion removal. Denies any nausea vomiting or severe abdominal pain at this time. Plan -Clear liquid diet as per general surgery -Antireflux regimen -Pain medication and antiemetics and pain as per attending -Continue PPI -Avoid NSAIDs -Supportive care -Further recommendations to follow based on patient status and findings This patient has been seen by myself and Dr. Zamora and this note is written on her behalf - Attending Attestation Dr. Zamora <Samantha Pierce - Last Filed: 04/25/18 17:05> (1) Abdominal pain Status: Acute Code(s): R10.9 - Unspecified abdominal pain (2) Intussusception Status: Acute Code(s): K56.1 - Intussusception - Attending Attestation agree with above <Marta Zamora - Last Filed: 04/25/18 19:29>
[2018-04-25] MEDS: Enoxaparin Inj 30 MG/0.3 ML Syringe SQ SCH ×2 (18:50→20:43)
[2018-04-26] MEDS: Pantoprazole Inj 40 MG Vial IV.PUSH SCH ×2 (02:53→15:39)
[2018-04-26] MEDS: Sod Chloride 0.9% Inj 1,000 ML IV.CONT SCH ×2 (06:08→15:44)
[2018-04-26 09:11] VITALS: O2SAT 100
[2018-04-26] MEDS: Enoxaparin Inj 30 MG/0.3 ML Syringe SQ SCH (09:27)
--- NOTE | 2018-04-26 10:19 | P.PNGI ---
Subjective Interval history: Patient awake and alert sitting up in chair at bedside. Tolerated clear liquid diet well this morning without any reported nausea or vomiting. Abdominal binder in place as patient is post diagnostic laparotomy yesterday. Patient reports mild abdominal pain. States she is passing gas and has been ambulating in [place] <Samantha Pierce - Last Filed: 04/26/18 10:15> Physical Exam Vital signs: Vital Signs 04/25/18 13:40 04/25/18 13:45 04/25/18 14:00 Temperature 97.9 F Pulse Rate 63 59 L 50 L Respiratory Rate 16 15 16 Blood Pressure 139/63 145/87 H 148/78 H Pulse Oximetry 100 96 97 04/25/18 14:15 04/25/18 14:30 04/25/18 14:45 Temperature Pulse Rate 53 L 48 L 45 L Respiratory Rate 16 15 15 Blood Pressure 139/72 136/75 133/78 Pulse Oximetry 98 98 99 04/25/18 15:00 04/25/18 15:45 04/25/18 16:00 Temperature 97.7 F 97.8 F Pulse Rate 48 L 52 L 49 L Respiratory Rate 15 16 16 Blood Pressure 135/81 135/81 174/83 H Pulse Oximetry 98 96 97 04/25/18 19:57 04/25/18 20:00 04/26/18 00:00 Temperature 97.9 F 98.0 F Pulse Rate 63 58 L Respiratory Rate 18 17 17 Blood Pressure 148/68 H 133/78 Pulse Oximetry 96 94 L 04/26/18 04:11 04/26/18 08:00 Temperature 97.8 F 97.1 F L Pulse Rate 58 L 52 L Respiratory Rate 17 16 Blood Pressure 116/80 182/94 H Pulse Oximetry 97 100 Intake & Output 04/25/18 04/26/18 04/26/18 18:59 06:59 18:59 Intake Total 1150 / 1150 2000 / 2000 Output Total 155 / 155 725 / 725 Balance 995 / 995 1275 / 1275 Weight 139 kg Intake: IV 1150 / 1150 1000 / 1000 NS Inj 1,000 ML @ 125 mls/hr IV 1000 / 1000 .CONT .Q8H [facility] Rx#:[id number] LR 1000 mL Inj 1,000 ML @ 30 1000 / 1000 mls/hr IV.SIG .Q24H [facility] Rx#: [id number] Ancef 2 GM Premix Inj 2 gm In 50 / 50 50 ml @ 0 mls/hr IV.SIG .STK- [facility] Rx#:[id number] Flagyl 500 MG Inj 100 ML @ 0 100 / 100 mls/hr IV.SIG .STK-[facility] Rx#: [id number] Oral 1000 / 1000 Output: Urine 150 / 150 725 / 725 Estimated Blood Loss 5 / 5 - Constitutional no acute distress - Routine HEENT Exam Head: Present: normocephalic - Routine Respiratory Exam Present: CTA bilaterally. Absent: accessory muscle use - Routine Cardiovascular Exam Present: RRR - Routine Abdominal Exam Present: soft, normoactive bowel sounds, guarding. Absent: firm - Routine Extremities Exam Present: full ROM - Routine Skin Exam Present: dry, warm - Routine Psychiatric Exam Present: normal affect, cooperative <Pierce,Samantha - Last Filed: 04/26/18 10:15> Vital signs: Vital Signs 04/25/18 15:45 04/25/18 16:00 04/25/18 19:57 Temperature 97.7 F 97.8 F 97.9 F Pulse Rate 52 L 49 L 63 Respiratory Rate 16 16 18 Blood Pressure 135/81 174/83 H 148/68 H Pulse Oximetry 96 97 96 04/25/18 20:00 04/26/18 00:00 04/26/18 04:11 Temperature 98.0 F 97.8 F Pulse Rate 58 L 58 L Respiratory Rate 17 17 17 Blood Pressure 133/78 116/80 Pulse Oximetry 94 L 97 04/26/18 08:00 04/26/18 12:00 Temperature 97.1 F L 97.9 F Pulse Rate 52 L 50 L Respiratory Rate 16 15 Blood Pressure 182/94 H 178/81 H Pulse Oximetry 100 100 Intake & Output 04/25/18 04/26/18 04/26/18 18:59 06:59 18:59 Intake Total 1150 / 1150 2000 / 1999 Output Total 155 / 155 725 / 725 Balance 995 / 995 1275 / 1275 Weight 139 kg Intake: IV 1150 / 1150 1000 / 1000 NS Inj 1,000 ML @ 125 mls/hr IV 1000 / 1000 .CONT .Q8H [facility] Rx#:[id number] LR 1000 mL Inj 1,000 ML @ 30 1000 / 1000 mls/hr IV.SIG .Q24H [facility] Rx#: [id number] Ancef 2 GM Premix Inj 2 gm In 50 / 50 50 ml @ 0 mls/hr IV.SIG .STK- [facility] Rx#:[id number] Flagyl 500 MG Inj 100 ML @ 0 100 / 100 mls/hr IV.SIG .STK-[facility] Rx#: [id number] Oral 1000 / 1000 Output: Urine 150 / 150 725 / 725 Estimated Blood Loss 5 / 5 <Marta Manley - Last Filed: 04/26/18 15:42> Results - Labs CBC & Chem 7: 04/22/18 03:20 04/21/18 09:31 <Samantha Pierce - Last Filed: 04/26/18 10:15> - Labs CBC & Chem 7: 04/22/18 03:20 04/21/18 09:31 <Marta Manley - Last Filed: 04/26/18 15:42> Assessment and Plan (1) Abdominal pain Status: Acute Code(s): R10.9 - Unspecified abdominal pain (2) Intussusception Status: Acute Code(s): K56.1 - Intussusception - Plan This patient is a 42-year-old female who presented to [facility] emergency room on 04/21/2018. Patient presented with complaint of 2-3-day onset of right upper quadrant abdominal pain. Our practice has been consulted to evaluate patient's pain/possible need for EGD. Patient describes pain as sharp and stabbing and rates at 8 out of 10 at this time. She states she is never experienced this type of pain before, and that it is constant and does not radiate. There are no discernible alleviating or aggravating factors. Patient states pain is associated with nausea and vomiting. Patient states emesis "foam like". Denies any noted bleeding. Patient has history of gastric bypass that was done in 1999. States she was 550 pounds and has lost a total of 370 pounds before gaining back weight for present weight of 305 pounds. Last EGD was done 4-5 years ago per patient [place] in [place], patient states she was told that she had "low rising reflux". Patient denies any feelings of heartburn and is not currently prescribed a PPI or H2 james. States she takes Levsin, Dexilant daily. Patient denies any difficulty swallowing. She states her bowel movements are normally loose brown in color, 2-5 times daily. Denies any current change in bowel habits. Last colonoscopy per patient , was done 4-5 years ago [place] in [place] and patient reports it was a normal exam. States there is a family history of Crohn's, ulcerative colitis, celiac disease, paternal grandmother-colon cancer, maternal side of family-IBS. Patient denies the use of blood thinners/aspirin or NSAIDs. Denies tobacco or alcohol use, states he stopped smoking 22 years ago. Patient denies any noted rectal bleeding. Patient states she has had nothing by mouth since Sunday evening. Discussed EGD procedure with patient who verbalized understanding and agreement. Abdominal pain/History of gastric bypass Patient presents with 2-3-day onset of right upper quadrant abdominal pain that she describes as a sharp and stabbing. States accompanied nausea with vomiting. Denies any noted bleeding. Gastric bypass done in 1999.(04/21/2018) CT abdomen and pelvis done and revealed the following findings:.--> The patient is status post gastric bypass with fluid filled dilation of the jejunum just distal to the more distal anastomotic site.. At this location there is a short segment jejunal jejunal intussusception. No evidence of bowel obstruction or adjacent abnormal wall thickening. IUD identified within the midline endometrium and a dominant follicle identified within the left ovary. Hemoglobin 10.9 hematocrit 32.9 platelet count 251 total bilirubin 0.4 AST 31 ALT 21 alk phos 66 lipase 87. Plan for EGD today. Abdominal pain/history of gastric bypass 04/24/2018 Patient sitting up in bed watching television. Reports mild continued abdominal discomfort, being medicated with morphine sulfate 2 mg IV as needed. Denies any nausea or vomiting. Patient post EGD 04/23/2018 findings as follows- -. S/p gastric bypass gastric [id number] jejunum normal-biopsy. Retroflexion was not performed. Discussed antireflux regimen with patient, instructed to follow-up post discharge for biopsy results. Patient advised to avoid NSAIDs. Instructed for recommended repeat EGD in 3 years. 04/25/2018 Patient ambulating in room to restroom. Reporting mild abdominal discomfort, status post diagnostic laparotomy with adhesion removal. Denies any nausea vomiting or severe abdominal pain at this time. 04/26/2018 Patient sitting up at bedside. Tolerated clear liquid diet without reported nausea or vomiting. Reports mild abdominal tenderness post diagnostic laparotomy yesterday. Plan -Diet as per general surgery -Antireflux regimen -Pain medication and antiemetics and pain as per attending -Continue PPI -Avoid NSAIDs -Supportive care -Patient agrees to follow-up with GI post discharge This patient has been seen by myself and Dr. Manley and this note is written on her behalf - Attending Attestation Dr. manley <Samantha Pierce - Last Filed: 04/26/18 10:15> (1) Abdominal pain Status: Acute Code(s): R10.9 - Unspecified abdominal pain (2) Intussusception Status: Acute Code(s): K56.1 - Intussusception - Attending Attestation seen, examined agree with above gi will sign off if dc fu gi in 2 weeks <Marta Manley - Last Filed: 04/26/18 15:42>
[2018-04-26 13:11] VITALS: TEMP 97.9
--- NOTE | 2018-04-26 15:07 | P.PNGS ---
Subjective Patient reports: no new complaints, feels better, flatus Physical Exam Vital signs: Vital Signs 04/25/18 15:45 04/25/18 16:00 04/25/18 19:57 Temperature 97.7 F 97.8 F 97.9 F Pulse Rate 52 L 49 L 63 Respiratory Rate 16 16 18 Blood Pressure 135/81 174/83 H 148/68 H Pulse Oximetry 96 97 96 04/25/18 20:00 04/26/18 00:00 04/26/18 04:11 Temperature 98.0 F 97.8 F Pulse Rate 58 L 58 L Respiratory Rate 17 17 17 Blood Pressure 133/78 116/80 Pulse Oximetry 94 L 97 04/26/18 08:00 04/26/18 12:00 Temperature 97.1 F L 97.9 F Pulse Rate 52 L 50 L Respiratory Rate 16 15 Blood Pressure 182/94 H 178/81 H Pulse Oximetry 100 100 Intake & Output 04/25/18 04/26/18 04/26/18 18:59 06:59 18:59 Intake Total 1150 / 1150 2000 / 1999 Output Total 155 / 155 725 / 725 Balance 995 / 995 1275 / 1275 Weight 139 kg Intake: IV 1150 / 1150 1000 / 1000 NS Inj 1,000 ML @ 125 mls/hr IV 1000 / 1000 .CONT .Q8H [facility] Rx#:[id number] LR 1000 mL Inj 1,000 ML @ 30 1000 / 1000 mls/hr IV.SIG .Q24H [facility] Rx#: [id number] Ancef 2 GM Premix Inj 2 gm In 50 / 50 50 ml @ 0 mls/hr IV.SIG .STK- [facility] Rx#:[id number] Flagyl 500 MG Inj 100 ML @ 0 100 / 100 mls/hr IV.SIG .[facility] Rx#: [id number] Oral 1000 / 1000 Output: Urine 150 / 150 725 / 725 Estimated Blood Loss 5 / 5 - Constitutional no acute distress - Routine Respiratory Exam Present: CTA bilaterally - Routine Cardiovascular Exam Present: RRR - Routine Abdominal Exam Present: soft (incisional tenderness) Results - Labs 04/22/18 03:20 04/21/18 09:31 - Imaging Imaging: ITS Impressions Abdomen/Pelvis CT 04/21/18 08:58 CONCLUSION: 1. The patient is status post gastric bypass with fluid filled dilation of the jejunum just distal to the more distal anastomotic site.. At this location there is a short segment jejunal jejunal intussusception. No evidence of bowel obstruction or adjacent abnormal wall thickening. 2. IUD identified within the midline endometrium and a dominant follicle identified within the left ovary. Gastrografin Study 04/22/18 08:00 CONCLUSION: Negative examination. Assessment and Plan - Assessment (1) Gastroenteritis and colitis, viral Code(s): A08.4 - Viral intestinal infection, unspecified Status: Acute - Plan hx of gastric bypass, egd shows gastritis, questionable intussusception plan for Dx lap- with adhesion, advance to soft diet d/c planning today if bp better and pain controlled
[2018-04-26 19:16] VITALS: BP 126/66; PULSE 54; RESP 18
== END 2018-04-26 20:24 | disposition home or self-care (01) ==
LOC: NEDA 08:22 → NEPC 08:22 → NEPHCDU 15:43 → N07 04-25 11:07
PROVIDERS: ADMIT Surgery; ATTEND Surgery
PROC: PANENDO (2018-04-23 11:41)